=== PATIENT | female | born 1945 | race Caucasian/White ===

== ENCOUNTER → 2019-06-29 | Day surgery (SDC) | payer MEDICARE ==
[2019-06-25 16:17] VITALS: BMI 27.4
[~2019-06-29] MED LIST: BENZOCAINE SPRAY 1 CAN MUCOUS MEM ONE; MIDAZOLAM 2 MG/2 ML VIAL IVP ONE; SODIUM CHLORIDE 0.9% 1,000 ML IV SCH; SODIUM CHLORIDE 0.9% 500 ML 500 ML IV ONE; fentaNYL (PF) 50 MCG/ML 2 ML AMP IVP ONE; fentaNYL (PF) 50 MCG/ML 2 ML AMP ONE
[2019-06-29 09:55] VITALS: TEMP 97.9
[2019-06-29 10:29] VITALS: RESP 16
--- NOTE | 2019-06-29 10:59 | ECHOT ---
TRANSESOPHAGEAL ECHOCARDIOGRAM INDICATION: Abnormal 2D echo showing an echodense lesion on the mitral leaflet in a patient with positive blood cultures. PROCEDURE NOTE: After obtaining informed consent, transesophageal echocardiogram is performed in left lateral position using an Omniplane probe. Local and IV sedation were obtained using Xylocaine spray, Versed and fentanyl. She tolerated the procedure well without any obvious immediate complications. FINDINGS: 1. Mitral Valve: Mitral valve appears anatomically normal. There is a thickening of the anterior mitral leaflet that could either represent a healed vegetation, calcified mitral leaflet or just thickening of the mitral valve. There is mild central mitral regurgitation noted. 2. Aortic valve is a 3-leaflet valve. There is no evidence of high-grade stenosis or regurgitation. There is no vegetation over the aortic valve. 3. Tricuspid valve shows mild tricuspid regurgitation. Tricuspid valve appears anatomically normal. 4. Left ventricle has normal size and systolic function. 5. Left atrium appears mildly enlarged. 6. Right atrium and right ventricle within normal limits. 7. Interatrial Septum: There is no evidence of [id number] shunt by color-flow Doppler or [id number] shunt by agitated saline contrast study. 8. Aorta is free of aneurysm dissection. CONCLUSION: Mild mitral regurgitation with thickened anterior mitral leaflet without any evidence of vegetation. There is thickening of the anterior mitral leaflet, which could be due to an area of calcification or myxomatous mitral valve change or could even represent a healed vegetation. MMODL / IJN: [id number] /
[2019-06-29 11:13] VITALS: BP 113/53; PULSE 75
== END ==
LOC: CATHCVL 09:26
PROVIDERS: ATTEND Internal Medicine Cardiovascular Disease
DX: R00.2 Palpitations (principal); I08.1 Rheumatic disorders of both mitral and tricuspid valves; E78.5 Hyperlipidemia, unspecified; Z79.899 Other long term (current) drug therapy; Z88.1 Allergy status to other antibiotic agents; Z91.040 Latex allergy status; Z82.49 Family history of ischemic heart disease and other diseases of the circulatory system
CPT/HCPCS: 93312; 93320; 93325; J2250; J3010

== ENCOUNTER 2019-11-23 07:32 | Day surgery (SDC) | payer MEDICARE, OTHER ==
[2019-11-18 11:39] VITALS: BMI 27.4
[~2019-11-23 07:32] MED LIST changes: +ACETAMINOPHEN TAB 500 MG TAB PO ONE; -BENZOCAINE SPRAY 1 CAN MUCOUS MEM ONE; +DEXAMETHASONE SOD PHOSPHATE 10 MG/ML 1 ML VIAL IV ONE; +HEPARIN SODIUM,PORCINE 5,000 UNIT/ML 1 ML VIAL SQ ONE; +HYDROmorphone 0.5 MG/0.5 ML SYRINGE IVP PRN; +LACTATED RINGERS 1,000 ML IV SCH; -MIDAZOLAM 2 MG/2 ML VIAL IVP ONE; -SODIUM CHLORIDE 0.9% 1,000 ML IV SCH; -SODIUM CHLORIDE 0.9% 500 ML 500 ML IV ONE; -fentaNYL (PF) 50 MCG/ML 2 ML AMP IVP ONE; -fentaNYL (PF) 50 MCG/ML 2 ML AMP ONE
[2019-11-23] MEDS ORDERED: ACETAMINOPHEN TAB 500 MG TAB ONE (08:02)
[2019-11-23] MEDS ORDERED: ONDANSETRON 4 MG/2 ML VIAL ONE ×2 (08:03→10:43)
[2019-11-23] MEDS ORDERED: HEPARIN SODIUM,PORCINE 5,000 UNIT/ML 1 ML VIAL ONE (08:03)
--- NOTE | 2019-11-23 08:15 | P.GSHP ---
History of Present Illness H&P Date: 11/23/19 Chief Complaint: Right upper quadrant pain This a 74-year-old female who's had complaints of right upper quadrant pain. Patient's. Nausea and right upper quadrant pain when eating greasy foods. Patient has chronic cholecystitis. Patient presents today for laparoscopic ch olecystectomy Past Medical History Past Medical History: Asthma, Cancer, GERD/Reflux Additional Past Medical History / Comment(s): treated in Apr 2019 for lung infection and sepsis, lymphoma-received Rituxan last tx October 2018,palpitations,lung capacity working at 70%. heart flutters History of Any Multi-Drug Resistant Organisms: None Reported Additional Past Surgical History / Comment(s): dwight cataract procedure Past Anesthesia/Blood Transfusion Reactions: No Reported Reaction Smoking Status: Never smoker - Past Family History Mother Family Medical History: No Reported History Father Family Medical History: Cancer Additional Family Medical History / Comment(s): kidney cancer Sister(s) Family Medical History: Cancer Additional Family Medical History / Comment(s): breast cancer Medications and Allergies Home Medications Medication Instructions Recorded Confirmed Type Ascorbic Acid [Vitamin C] 500 mg PO DAILY 06/25/19 11/18/19 History Calcium Citrate 1,200 mg PO DAILY 06/25/19 11/18/19 History Propranolol [Inderal] 20 mg PO BID 06/25/19 11/18/19 History Ubidecarenone [Co Q-10] 200 mg PO DAILY 06/25/19 11/18/19 History Vitamin B Complex 1 each PO DAILY 06/25/19 11/18/19 History Cholecalciferol [Vitamin D3 (25 1,000 unit PO DAILY 11/18/19 11/18/19 History Mcg = 1000 Iu)] Perphenazine/Amitriptyline 2mg/10mg 1 tab PO BID 11/18/19 11/18/19 History Allergies Allergy/AdvReac Type Severity Reaction Status Date / Time erythromycin base Allergy Rapid Verified 11/23/19 08:04 Heart Rate latex Allergy red Verified 11/23/19 08:04 hands,itching Surgical - Exam Vital Signs Temp Pulse Resp BP Pulse Ox 98 F 77 16 188/86 94 L 11/23/19 08:01 11/23/19 08:01 11/23/19 08:01 11/23/19 08:01 11/23/19 08:01 - General well developed, well nourished, no distress - Eyes PERRL - ENT normal pinna - Neck no masses - Respiratory normal expansion - Cardiovascular Rhythm: regular - Abdomen Abdomen: soft, non tender Assessment and Plan Assessment: Chronic cholecystitis. We'll perform laparoscopic cholecystectomy.
[2019-11-23] MEDS: ONDANSETRON 4 MG/2 ML VIAL IVP ONE ×2 (08:23→10:50)
[2019-11-23] MEDS ORDERED: PROPOFOL 10 MG/ML 20 ML VIAL IV ONE (08:33)
[2019-11-23] MEDS ORDERED: ROCURONIUM BROMIDE 10 MG/ML 5 ML VIAL IV ONE (08:33)
[2019-11-23] MEDS ORDERED: KETOROLAC 30 MG/ML 1 ML VIAL ONE (08:33)
[2019-11-23] MEDS ORDERED: NALOXONE 0.4 MG/ML 1 ML VIAL ONE (08:33)
[2019-11-23] MEDS ORDERED: GLYCOPYRROLATE 0.2 MG/ML 2 ML VIAL ONE (08:33)
[2019-11-23] MEDS ORDERED: NEOSTIGMINE 1 MG/ML 10 ML VIAL ONE (08:33)
[2019-11-23] MEDS ORDERED: SUCCINYLCHOLINE CHLORIDE 100 MG/5 ML SYR IV ONE (08:33)
[2019-11-23] MEDS ORDERED: MIDAZOLAM 2 MG/2 ML VIAL ONE (08:33)
[2019-11-23] MEDS ORDERED: LIDOCAINE 1% INJ 10MG/ML (20 ML MDV) ONE (08:33)
[2019-11-23] MEDS ORDERED: fentaNYL (PF) 50 MCG/ML 2 ML AMP ONE (08:33)
[2019-11-23] MEDS ORDERED: BUPIVACAIN-EPI 0.25%-1:200,000 30 ML VIAL SQ ONE (08:54)
--- NOTE | 2019-11-23 09:16 | P.OP ---
Date of Procedure: 11/23/19 Preoperative Diagnosis: Cholecystitis Postoperative Diagnosis: Cholecystitis Procedure(s) Performed: Laparoscopic cholecystectomy Anesthesia: RANDY Surgeon: Sonu Negrete Estimated Blood Loss (ml): 5 Pathology: other (Gallbladder) Condition: stable Disposition: PACU Description of Procedure: The patient was placed on the operating table. The patient received a general endotracheal tube anesthesia. The patients abdomen was prepped and draped in the usual sterile fashion. Through an infraumbilical stab incision, the fascia of the anterior abdominal wall was grasped with a pair of Kochers and then the Veress needle was placed in the peritoneal cavity. Position of the Veress needle was confirmed with positive drop test. The abdomen was then insufflated. After adequate insufflation, the 10 mm trocar was placed in the peritoneal cavity. Following this the laparoscope was placed in the peritoneal cavity. The patient was placed in the head-up, right side up position and then a 5 mm trocar was placed in the right lateral and right subcostal position under direct visualization. A 8 mm trocar was placed in the epigastric position. The gallbladder was grasped in the fundus and infundibulum. Traction on the gallbladder was placed in the lateral and the cephalad positions. The triangle of Calot was visualized.. The cystic duct was bluntly dissected until the union of the cystic duct and common bile duct was seen. A critical view of safety was achieved. The cystic duct was then divided and sealed with the Harmonic scissors. A PDS Endoloop was then placed throughout the cystic duct stump. The cystic artery divided and sealed with the Harmonic scissors. The gallbladder was then removed from the liver bed using Harmonic scissors. The gallbladder was then extracted through the epigastric port site. Operative field was checked for any bleeding spots and Harmonic scissors was used to coagulate the liver bed. The abdomen was irrigated. The trocars were removed. The skin was closed using interrupted 3-0 Vicryl suture. Dermabond dressing were applied. The patient tolerated the procedure well.
[2019-11-23 09:42] VITALS: TEMP 97.4
[2019-11-23 10:07] VITALS: RESP 16
[2019-11-23] MEDS ORDERED: LACTATED RINGERS 1,000 ML IV ONE (10:10)
[2019-11-23] MEDS ORDERED: HYDROcodone/APAP 5-325MG 1 EACH TAB ONE (10:40)
[2019-11-23] MEDS ORDERED: HYDROcodone/APAP 5-325MG 1 EACH TAB PO ONE (11:15)
[2019-11-23 11:52] VITALS: BP 146/79; PULSE 65
== END 2019-11-23 12:11 | disposition home or self-care (01) ==
LOC: OR 07:32
PROVIDERS: ATTEND Surgery
DX: K80.12 Calculus of gallbladder with acute and chronic cholecystitis without obstruction (principal); J45.909 Unspecified asthma, uncomplicated; K21.9 Gastro-esophageal reflux disease without esophagitis; F32.9 Major depressive disorder, single episode, unspecified; F41.9 Anxiety disorder, unspecified; Z85.72 Personal history of non-Hodgkin lymphomas; Z80.3 Family history of malignant neoplasm of breast; Z80.51 Family history of malignant neoplasm of kidney; Z79.899 Other long term (current) drug therapy; Z91.040 Latex allergy status; Z88.1 Allergy status to other antibiotic agents; Z92.21 Personal history of antineoplastic chemotherapy
CPT/HCPCS: 88304; 47562; J2250; J1644; J1100; J2310; J2710; J0690; J2405; J2001; J3010; J1885; J0330; J2704

== ENCOUNTER → 2020-01-26 | Outpatient (CLI) | payer MEDICARE, OTHER ==
--- NOTE | 2020-01-26 14:51 | CT ---
EXAMINATION TYPE: CT chest w con DATE OF EXAM: 01/26/2020 COMPARISON: 07/27/2019 HISTORY: Lymphoma. CT DLP: 472 mGycm, Automated exposure control for dose reduction was used. CONTRAST: Performed injected with 100 mL of Isovue M300. TECHNIQUE: Axial images were obtained at 5 mm thick sections. Reconstructed images are reviewed on [employer] computer in the coronal plane. FINDINGS: Portion of the thyroid visualized is normal. There is a large consolidation with air bronchograms within the right middle lobe. Correlate for pneu monia. Underlying neoplasm should be considered. Follow-up to clearing is recommended. This was prese nt on the comparison CT of 07/27/2019. There is a 1.0 cm lymph node in the pretracheal space or proximal right peribronchial region. This wa s present previously and stable in size. The ascending aorta diameter at the level of the main pulmon gera artery is 2.7 cm. The main pulmonary artery diameter at the bifurcation is 2.[address] sections are obtained through the upper abdomen. Abdomen is essentially unremarkable. IMPRESSIONS: 1. Right middle lobe consolidation. Correlate for pneumonia. Follow-up to clearing is recommended. Un derlying neoplasm is not excluded. 2. Enlarged 1.0 cm lymph node right peribronchial or pretracheal lymph node, present on comparison st udy.
== END | disposition home or self-care (01) ==
LOC: RADCTMAIN 10:23
PROVIDERS: ATTEND Internal Medicine Hematology & Oncology
DX: C85.90 Non-Hodgkin lymphoma, unspecified, unspecified site (principal); C88.4 Extranodal marginal zone B-cell lymphoma of mucosa-associated lymphoid tissue [MALT-lymphoma]; Z88.1 Allergy status to other antibiotic agents; Z91.040 Latex allergy status
CPT/HCPCS: 82565; 84520; 71260; 36415; Q9967

== ENCOUNTER → 2020-07-25 | Outpatient (CLI) | payer MEDICARE, OTHER ==
--- NOTE | 2020-07-25 13:55 | CT ---
EXAMINATION TYPE: CT chest w con DATE OF EXAM: 07/25/2020 COMPARISON: Chest CT January 26, 2020 and older study July 27, 2019 HISTORY: Lymphoma CT DLP: 595 mGycm. Automated Exposure Control for Dose Reduction was Utilized. TECHNIQUE: CT scan of the thorax is performed following with IV Contrast, patient injected with 100 mL of Isovue 300. FINDINGS: LUNGS: Elevated right hemidiaphragm redemonstrated. Persistent area of mass and/or masslike consolida tion centered right middle lobe extending from right hilar region to the lung periphery measuring 7.5 x 4.9 cm axial image 29 not significantly changed from prior studies. Some air bronchograms along th e periphery remain present. Left lung remains clear. No pleural effusion or pneumothorax seen. No new mediastinal shift. MEDIASTINUM: There are no new greater than 1 cm hilar or mediastinal lymph nodes. Stable prominent bu t subcentimeter right paratracheal and tracheobronchial lymph nodes axial images 23 through 25. No c ardiomegaly or pericardial effusion is seen. OTHER: Cholecystectomy clips. Mild wall thickening involving transverse and left colon present throug hout the poor distention. IMPRESSION: Stable right middle lobe mass and/or masslike consolidation could reflect known pulmonary lymphoma. This is unchanged in appearance from prior 2 CT studies. No new mass or adenopathy noted.
== END | disposition home or self-care (01) ==
LOC: RADCTMAIN 10:59
PROVIDERS: ATTEND Internal Medicine Hematology & Oncology
DX: C88.4 Extranodal marginal zone B-cell lymphoma of mucosa-associated lymphoid tissue [MALT-lymphoma] (principal); Z91.040 Latex allergy status; Z88.1 Allergy status to other antibiotic agents
CPT/HCPCS: 82565; 84520; 71260; Q9967

== ENCOUNTER → 2021-01-24 | Outpatient (CLI) | payer MEDICARE, OTHER ==
--- NOTE | 2021-01-24 12:53 | CT ---
EXAMINATION TYPE: CT ChestAbdPelvis w con DATE OF EXAM: 01/24/2021 COMPARISON: Prior chest CT July 25, 2020 and older studies HISTORY: Follow up lymphoma CT DLP: 1618 mGycm. Automated Exposure Control for Dose Reduction was Utilized. CONTRAST: CT scan of the thorax, abdomen and pelvis is performed with oral and with IV Contrast, patient inject ed with 100 mL of Isovue 300. FINDINGS: LUNGS: Elevated right hemidiaphragm redemonstrated. Persistent area of mass and/or masslike consolida tion centered right middle lobe extending from right hilar region to the lung periphery anteriorly me asuring 7.7 x 6.8 cm axial image 26 not significantly changed from prior studies accounting for techn ical differences. Some air bronchograms along the periphery remain present. Left lung shows new 5 mm peripheral left lower lobe nodule image 29 that should be followed. No pleural effusion or pneumothor ax seen bilaterally. Persistent slight right-sided volume loss and mediastinal shift. MEDIASTINUM: There are no new greater than 1 cm hilar or mediastinal lymph nodes. No cardiomegaly or pericardial effusion is seen. LIVER/GB: Cholecystectomy clips are redemonstrated. PANCREAS: No significant abnormality is seen. SPLEEN: No significant abnormality is seen. ADRENALS: No significant abnormality is seen. KIDNEYS: No significant abnormality is seen. BOWEL: The oral contrast reaches level of cecum. No suspicious small or large bowel dilatation. Diver ticula in the sigmoid colon are noted. No CT evidence for diverticulitis GENITAL ORGANS: Lobulated fibroid type uterus with calcifications and calcific masses. LYMPH NODES: No greater than 1cm abdominal or pelvic lymph nodes are appreciated. OSSEOUS STRUCTURES: Posterior disc herniations L2-L3 through L4-L5 levels sagittal image 65 efface th e anterior thecal sac. Moderate axial joint space loss both hips. OTHER: Mild to moderate calcified plaque of the aorta extends into branch vessels. IMPRESSION: Persistent right middle lobe mass and/or masslike consolidation could reflect known pulmo nary lymphoma. This is unchanged in appearance from prior CT studies. No new mass or adenopathy noted .
== END | disposition home or self-care (01) ==
LOC: RADCTMAIN 10:09
PROVIDERS: ATTEND Internal Medicine Hematology & Oncology
DX: C85.90 Non-Hodgkin lymphoma, unspecified, unspecified site (principal); R91.8 Other nonspecific abnormal finding of lung field
CPT/HCPCS: 82565; 84520; 71260; 74177; 36415; Q9967

== ENCOUNTER → 2021-08-01 | Outpatient (CLI) | payer MEDICARE, OTHER ==
--- NOTE | 2021-08-01 14:41 | CT ---
EXAMINATION TYPE: CT chest w con DATE OF EXAM: 08/01/2021 COMPARISON: Most recent CT January 24, 2021 and older CTs HISTORY: lymphoma CT DLP: 574 mGycm. Automated Exposure Control for Dose Reduction was Utilized. TECHNIQUE: CT scan of the thorax is performed following with IV Contrast, patient injected with 100m L mL of Isovue 300. FINDINGS: LUNGS: Elevated right hemidiaphragm redemonstrated. Persistent area of mass and/or masslike consolida tion centered right middle lobe extending from right hilar region to the lung periphery measuring 8.2 x 6.7 cm axial image 28 not significantly changed from prior studies accounting for technical differ ences. Some air bronchograms along the periphery remain present. Slight right-sided volume loss is st able. Left lung remains clear. No pleural effusion or pneumothorax seen. No new mediastinal shift. MEDIASTINUM: There are stable prominent but subcentimeter right paratracheal and AP window lymph node s axial image 21. Stable prominent but subcentimeter right tracheobronchial lymph nodes axial image 2 3. No cardiomegaly or pericardial effusion is seen. OTHER: Cholecystectomy clips. Small ventral wall hernia just right of midline containing fat and mese nteric vessels axial image 56 redemonstrated. IMPRESSION: Stable right middle lobe mass and/or masslike consolidation could reflect known pulmonary lymphoma. This is not significantly changed in appearance from prior studies. No new mass or adenopa thy noted.
== END | disposition home or self-care (01) ==
LOC: RADCTMAIN 13:04
PROVIDERS: ATTEND Internal Medicine Hematology & Oncology
DX: C88.4 Extranodal marginal zone B-cell lymphoma of mucosa-associated lymphoid tissue [MALT-lymphoma] (principal)
CPT/HCPCS: 82565; 84520; 71260; 36415; Q9967

== ENCOUNTER → 2022-08-13 | Outpatient (CLI) | payer MEDICARE, OTHER ==
--- NOTE | 2022-08-13 12:25 | CT ---
EXAMINATION TYPE: CT chest w con DATE OF EXAM: 08/13/2022 COMPARISON: Prior CT August 01, 2021 and older CTs from outside study July 27, 2019 HISTORY: f/u lymphoma. CT DLP: 515.50 mGycm. Automated Exposure Control for Dose Reduction was Utilized. TECHNIQUE: CT scan of the thorax is performed following with IV Contrast, patient injected with 80 m L of Isovue 300. FINDINGS: LUNGS: Elevated right hemidiaphragm redemonstrated. Persistent area of mass and/or masslike consolida tion centered right middle lobe extending from right hilar region to the lung periphery measuring 7.6 x 7.3 cm axial image 22 is not significantly changed from prior studies accounting for technical dif ferences. Some air bronchograms are redemonstrated. Slight right-sided volume loss is stable. Mild bi basilar linear scarring and/or atelectasis is present. Left lung remains clear. No pleural effusion o r pneumothorax seen. No new mediastinal shift. MEDIASTINUM: There are stable prominent but subcentimeter thoracic lymph nodes. Stable prominent but subcentimeter right tracheobronchial lymph node axial image 18. No new greater than 1 cm lymphadenopa thy. No cardiomegaly or pericardial effusion is seen. Coronary artery calcification is redemonstrate d. OTHER: Cholecystectomy clips are redemonstrated. Wide mouth ventral wall hernia just right of midline containing fat and mesenteric vessels axial image 49 is redemonstrated. IMPRESSION: Stable right middle lobe mass and/or masslike consolidation could reflect known pulmonary lymphoma. This is not significantly changed in appearance from prior studies. No new or enlarging ma ss or adenopathy is noted.
== END | disposition home or self-care (01) ==
LOC: RADCTMAIN 10:38
PROVIDERS: ATTEND Internal Medicine Hematology & Oncology
DX: C88.4 Extranodal marginal zone B-cell lymphoma of mucosa-associated lymphoid tissue [MALT-lymphoma] (principal); R91.8 Other nonspecific abnormal finding of lung field; Z03.89 Encounter for observation for other suspected diseases and conditions ruled out
CPT/HCPCS: 82565; 84520; 71260; 36415; Q9967

== ENCOUNTER → 2023-03-13 | Outpatient (CLI) | payer MEDICARE, OTHER ==
[2023-03-13 11:39] LABS: African American GFR (CKD) 71 (>60 ml/min/1.73 sqM); Blood Urea Nitrogen 16 mg/dL (7-17); Non-African American GFR(CKD) 62 (>60 ml/min/1.73 sqM)
--- NOTE | 2023-03-13 12:17 | CT ---
EXAMINATION TYPE: CT chest w con DATE OF EXAM: 03/13/2023 COMPARISON: 08/13/2022 HISTORY: f/u lymphoma CT DLP: 547 mGycm Automated exposure control for dose reduction was used. CONTRAST: CT scan of the chest is performed with IV Contrast, patient injected with 100 mL of Isovue 370. FINDINGS: LUNGS: A note is mass consolidation right middle lobe unchanged from prior study measuring approximat rich 7.4 x 5.6 cm versus 7.6 x 7.3 cm previously. The remainder of the lungs are clear. Chronic elevat ion right hemidiaphragm. No additional masses or pulmonary nodules seen. MEDIASTINUM: There are no greater than 1 cm hilar or mediastinal lymph nodes. No pericardial effusi on is seen. Thoracic aorta is of normal caliber. The heart is not enlarged. UPPER ABDOMEN: No significant abnormality appreciated. OTHER: No additional significant abnormality is seen. IMPRESSION: 1. Masslike consolidation or underlying mass right middle lobe is essentially unchanged. Correlate fo r pulmonary lymphoma. No adenopathy greater than 1 cm.
== END | disposition home or self-care (01) ==
LOC: RADCTMAIN 10:37
PROVIDERS: ATTEND Internal Medicine Hematology & Oncology
DX: C88.4 Extranodal marginal zone B-cell lymphoma of mucosa-associated lymphoid tissue [MALT-lymphoma] (principal); F32.9 Major depressive disorder, single episode, unspecified; I49.9 Cardiac arrhythmia, unspecified; R91.8 Other nonspecific abnormal finding of lung field; Z71.3 Dietary counseling and surveillance
CPT/HCPCS: 82565; 84520; 71260; 36415; Q9967

== ENCOUNTER → 2024-03-17 | Outpatient (CLI) | payer MEDICARE, OTHER ==
[2024-03-17 10:59] LABS: African American GFR (CKD) 71 (>60 ml/min/1.73 sqM); Blood Urea Nitrogen 14 mg/dL (7-17); Non-African American GFR(CKD) 62 (>60 ml/min/1.73 sqM)
--- NOTE | 2024-03-17 13:15 | CT ---
EXAMINATION TYPE: CT chest w con CT DLP: 336.70 mGycm, Automated exposure control for dose reduction was used. 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 . Coronal and sagittal reformats reviewed. FINDINGS: LUNGS/ PLEURA: No pleural effusion or pneumothorax. Unchanged masslike consolidation within the right middle and lower lobes with perihilar extension and air bronchograms. Measures grossly 8.4 x 4.8 cm. No new or enlarging pulmonary nodules. Elevated right hemidiaphragm redemonstrated. Slight right-avinash ed volume loss is stable. AIRWAY: Patent and unremarkable.. HEART: Size within normal limits. No pericardial effusion. Coronary artery calcification. MEDIASTINUM: Stable nonenlarged lymph nodes. VASCULATURE: No aortic aneurysm. Mild atherosclerotic calcification of the aorta and its branches. MUSCULOSKELETAL: Mild disc degeneration changes are present throughout the thoracolumbar spine. No ag gressive osseous lesion. No acute osseous abnormality. SOFT TISSUES/LYMPH NODES: Unremarkable. LOWER NECK: No significant findings. UPPER ABDOMEN: Gallbladder is surgically absent. Redemonstration of widemouthed ventral wall hernia j ust right of midline containing fat and mesenteric vessels. IMPRESSION: Stable right middle lobe masslike consolidation which could reflect known pulmonary lymphoma. This is not significantly changed in appearance from prior studies. No new or enlarging mass or adenopathy i s noted. [facility], , 03/17/2024 1:13 PM
== END | disposition home or self-care (01) ==
LOC: RADCTMAIN 10:06
PROVIDERS: ATTEND Internal Medicine Hematology & Oncology
CPT/HCPCS: 36415; 71260; 82565; 84520